=== PATIENT | male | born 1980 | race Caucasian/White ===

== ENCOUNTER 2018-04-13 09:15 | Emergency (ER) | payer OTHER ==
[2018-04-13] MEDS ORDERED: NS 0.9% 1000 ML* 1,000 ML IV ONE (10:18)
[2018-04-13] MEDS ORDERED: Ondansetron INJ* 2 MG/ML VIAL IV ONE (10:18)
--- NOTE | 2018-04-13 11:55 | UC ---
Will Dai Rebecca, scribed for Suman Cristina MD on 04/13/18 at 1024 . General HPI - HPI Summary HPI Summary: Pt is a 37 y/o M who presents to [facility] c/o fatigue for 3-4 days. Additionally c /o nasal congestion, abdominal pain and N/V/D, with diarrhea being controlled with Immodium. Vomited 2x last night. Denies fever, sore throat, blood in stool , cough. Flu vaccination this year. Drank from a natural spring 5 days ago. Was on Enbrel with the last dose 1 week ago, treating ankylosing spondylitis. - History of Current Complaint Chief Complaint: UCGeneralIllness Stated Complaint: FLU LIKE SYMPTOMS Hx Obtained From: Patient Onset/Duration: Lasting Days - 3-4 days, Still Present Current Severity: Mild Pain Intensity: 1 Pain Location at: Abdomen Aggravating: Nothing Alleviating: Nothing Associated Signs & Symptoms: Positive: Diarrhea, Nausea, Vomiting, Other - Fatigue - Allergy/Home Medications Allergies/Adverse Reactions: Allergies Allergy/AdvReac Type Severity Reaction Status Date / Time No Known Allergies Allergy Verified 04/13/18 10:14 Home Medications: Home Medications Adalimumab [Humira] 10 mg SQ SEE INSTRUCTIONS 04/13/18 [History Confirmed ] Etanercept [Enbrel] 25 mg SC WEEKLY 04/13/18 [History Confirmed 04/13/18] Etodolac 400 mg PO TID PRN 04/13/18 [History Confirmed 04/13/18] [place]-3 Fatty Acids/Fish Oil [Fish Oil 1,000 mg Capsule] 1 each PO DAILY [History Confirmed 04/13/18] PMH/Surg Hx/FS Hx/Imm Hx - Additional Past Medical History Additional PMH: PMHx: Ankylosing spondylitis, SBO - Surgical History Surgical History: Yes Surgery Procedure, Year, and Place: appendectomy - Family History Known Family History: Negative: Blood Disorder - Social History Alcohol Use: Occasionally Substance Use Type: Marijuana Substance Use Comment - Amount & Last Used: once a week Smoking Status (MU): Never Smoked Tobacco Review of Systems Constitutional: Fatigue Skin: Negative Eyes: Negative ENT: Sinus Congestion Respiratory: Negative Cardiovascular: Negative Gastrointestinal: Abdominal Pain, Vomiting, Diarrhea, Nausea Genitourinary: Negative Motor: Negative Neurovascular: Negative Musculoskeletal: Negative Neurological: Negative Psychological: Negative All Other Systems Reviewed And Are Negative: Yes - Comments Additional Review of Systems Comments: NEGATIVE: Fever, sore throat, blood in stool, cough Physical Exam - Summary Physical Exam Summary: Appearance: Well appearing, no pain distress Skin: warm, dry, reflects adequate perfusion Head/face: normal Eyes: EOMI, EDU ENT: normal Neck: supple, non-tender Respiratory: CTA, breath sounds present Cardiovascular: RRR, pulses symmetrical Abdomen: non-tender, soft, LLQ scar, periumbilical surgical scar Bowel Sounds: increased bowel sounds without any high-pitched noises Musculoskeletal: normal, strength/ROM intact Neuro: normal, sensory motor intact, A&Ox3 Triage Information Reviewed: Yes Vital Signs: Initial Vital Signs Temp 97.9 F 04/13/18 10:03 Pulse 76 04/13/18 10:03 Resp 16 04/13/18 10:03 BP 111/74 04/13/18 10:03 Pulse Ox 99 04/13/18 10:03 Vital Signs Reviewed: Yes Course/Dx - Course Course Of Treatment: Patient with a history of ankylosing spondylitis on Enbrel treatments. Drink from an outdoor spring and now has nausea vomiting and diarrhea. Was unable to provide a history here. Flagyl and. Clear. Follow- up on return to [place]. - Differential Dx - Multi-Symptom Provider Diagnoses: Gastroenteritis, history of ankylosing spondylitis Discharge - Sign-Out/Discharge Documenting (check all that apply): Discharge/Admit/Transfer - Discharge - Discharge Plan Condition: Good Disposition: HOME Prescriptions: metroNIDAZOLE [Flagyl 500 MG TAB] 500 mg PO TID #21 tab Ondansetron TAB* [Zofran 4 MG Tab*] 4 mg PO Q6H PRN #12 tab PRN Reason: Nausea Patient Education Materials: Gastroenteritis (ED) Referrals: [facility] [Outside] No Primary Care Phys,NOPCP [Primary Care Provider] - Additional Instructions: [facility] can provide local follow-up for you while you're here. Continue to hydrate well, use Imodium as needed. Return with fevers, worsening , new symptoms or other concerns. Do not drink alcohol with Flagyl. - Billing Disposition and Condition Condition: GOOD Disposition: Home The documentation as recorded by the Will watts Rebecca accurately reflects the service I personally performed and the decisions made by me, Suman Cristina MD.
== END 2018-04-13 11:52 | disposition home or self-care (01) ==
LOC: UCEAST 09:15
DX: K52.9 Noninfective gastroenteritis and colitis, unspecified (principal); R53.83 Other fatigue; R09.81 Nasal congestion; M45.9 Ankylosing spondylitis of unspecified sites in spine
CPT/HCPCS: 96360; 96374; 99202; G0463; J2405